=== PATIENT | male | born 1995 | race Caucasian/White ===

== ENCOUNTER 2020-11-14 11:57 | Emergency (ER) | payer BC ==
--- NOTE | 2020-11-14 12:01 | EDM.PDOC ---
ED HPI GENERAL MEDICAL PROBLEM - General Stated Complaint: TROUBLE BREATHING Time Seen by Provider: 11/14/20 11:59 Source of Information: Reports: Patient History Limitations: Reports: No Limitations - History of Present Illness INITIAL COMMENTS - FREE TEXT/NARRATIVE: 25-year-old male presents for multiple complaints. Patient notes that for the last 5 days he has had worsening shortness of breath, nonproductive cough, chest tightness, sore throat, swollen glands in neck, diarrhea, generalized body aches. He denies nausea or vomiting. Denies abdominal pain. Uncertain if he has had fevers. He has not yet contracted COVID-19 but has been tested several times with last test roughly 2 months ago and normal. - Related Data Allergies Allergy/AdvReac Type Severity Reaction Status Date / Time No Known Allergies Allergy Verified 11/14/20 12:09 Home Meds: Home Meds clonazePAM [Klonopin] 0.5 mg PO Q8H PRN #6 tablet 11/14/20 [Rx] ED ROS GENERAL - Review of Systems Review Of Systems: Comprehensive ROS is negative, except as noted in HPI. ED EXAM, GENERAL - Physical Exam Exam: See Below Exam Limited By: No Limitations General Appearance: Alert, WD/WN, No Apparent Distress, Anxious Throat/Mouth: Normal Inspection, Normal Oropharynx, Normal Voice, No Airway Compromise Head: Atraumatic, Normocephalic Neck: Normal Inspection Respiratory/Chest: No Respiratory Distress, Lungs Clear, Normal Breath Sounds, No Accessory Muscle Use Cardiovascular: Normal Peripheral Pulses, Regular Rate, Rhythm Extremities: Normal Inspection Neurological: Alert, Normal Gait Psychiatric: Normal Affect, Normal Mood, Anxious Skin Exam: Warm, Dry, Intact, Normal Color #1 Interpretation EKG Date: 11/14/20 Time: 11:57 Rhythm: NSR Rate (Beats/Min): 81 L[place]ellyn: Normal P-Wave: Present QRS: Normal ST-T: Normal QT: Normal NE/PQ Interval: 160 Comparison: NA - No Prior EKG EKG Interpretation Comments: normal EKG Course - Vital Signs Last Recorded V/S: Last Vital Signs Temp 97.4 F 11/14/20 12:09 Pulse 79 11/14/20 12:09 Resp 16 11/14/20 12:09 BP 130/59 L 11/14/20 12:09 Pulse Ox 98 11/14/20 12:09 - Orders/Labs/Meds Orders: Active Orders 24 hr Category Date Time Status EKG Documentation Completion [RC] STAT Care 11/14/20 12:25 Active Sodium Chloride 0.9% [Saline Flush] Med 11/14/20 12:25 Active 10 ml FLUSH ASDIRECTED PRN Sodium Chloride 0.9% [Saline Flush] Med 11/14/20 12:25 Active 2.5 ml FLUSH ASDIRECTED PRN Saline Lock Insert [OM.PC] Stat Oth 11/14/20 12:25 Ordered Medication Orders Sodium Chloride (Sodium Chloride 0.9% 10 Ml Syringe) 10 ml FLUSH ASDIRECTED PRN PRN Reason: Keep Vein Open Last Admin: 11/14/20 12:32 Dose: 10 ml Documented by: KIKO Sodium Chloride (Sodium Chloride 0.9% 2.5 Ml Syringe) 2.5 ml FLUSH ASDIRECTED PRN PRN Reason: Keep Vein Open Last Admin: 11/14/20 12:32 Dose: 2.5 ml Documented by: KIKO Labs: Laboratory Tests 11/14/20 11/14/20 11/14/20 Range/Units 12:30 12:35 12:35 WBC 6.75 (4.0-11.0) K/uL RBC 4.35 L (4.50-5.90) M/uL Hgb 13.8 (13.0-17.0) g/dL Hct 41.2 (38.0-50.0) % MCV 94.7 (80.0-98.0) fL MCH 31.7 (27.0-32.0) pg MCHC 33.5 (31.0-37.0) g/dL RDW Std Deviation 44.3 (28.0-62.0) fl RDW Coeff of Dorys 13 (11.0-15.0) % Plt Count 223 (150-400) K/uL MPV 12.10 H (7.40-12.00) fL Neut % (Auto) 73.2 (48.0-80.0) % Lymph % (Auto) 17.5 (16.0-40.0) % [place] % (Auto) 8.0 (0.0-15.0) % Eos % (Auto) 1.0 (0.0-7.0) % Baso % (Auto) 0.3 (0.0-1.5) % Neut # (Auto) 4.9 (1.4-5.7) K/uL Lymph # (Auto) 1.2 (0.6-2.4) K/uL [place] # (Auto) 0.5 (0.0-0.8) K/uL Eos # (Auto) 0.1 (0.0-0.7) K/uL Baso # (Auto) 0.0 (0.0-0.1) K/uL Nucleated RBC % 0.0 /100WBC Nucleated RBCs # 0 K/uL Lactate 1.2 (0.20-2.00) mmol/L Sodium (136-148) mmol/L Potassium (3.5-5.1) mmol/L Chloride (98-107) mmol/L Carbon Dioxide (21.0-32.0) mmol/L BUN (7.0-18.0) mg/dL Creatinine (0.8-1.3) mg/dL Est Cr Clr Drug Dosing mL/min Estimated GFR (MDRD) ml/min Glucose (74-106) mg/dL Calcium (8.5-10.1) mg/dL Magnesium (1.8-2.4) mg/dL Total Bilirubin (0.2-1.0) mg/dL AST (15-37) IU/L ALT (14-63) IU/L Alkaline Phosphatase (46-116) U/L Troponin I (0.000-0.056) ng/mL C-Reactive Protein (0.00-0.90) mg/dL Total Protein (6.4-8.2) g/dL Albumin (3.4-5.0) g/dL Globulin (2.6-4.0) g/dL Albumin/Globulin Ratio (0.9-1.6) Lipase (73-393) U/L TSH 3rd Generation (0.36-3.74) uIU/mL Urine Color YELLOW Urine Appearance CLEAR Urine pH 7.0 (5.0-8.0) Ur Specific [place] 1.020 (1.001-1.035) Urine Protein NEGATIVE (NEGATIVE) mg/dL Urine Glucose (UA) NEGATIVE (NEGATIVE) mg/dL Urine Ketones NEGATIVE (NEGATIVE) mg/dL Urine Occult Blood NEGATIVE (NEGATIVE) Urine Nitrite NEGATIVE (NEGATIVE) Urine Bilirubin NEGATIVE (NEGATIVE) Urine Urobilinogen 0.2 (<2.0) EU/dL Ur Leukocyte Esterase NEGATIVE (NEGATIVE) SARS-CoV-2 RNA (GALA) (NEGATIVE) 11/14/20 11/14/20 Range/Units 12:35 12:50 WBC (4.0-11.0) K/uL RBC (4.50-5.90) M/uL Hgb (13.0-17.0) g/dL Hct (38.0-50.0) % MCV (80.0-98.0) fL MCH (27.0-32.0) pg MCHC (31.0-37.0) g/dL RDW Std Deviation (28.0-62.0) fl RDW Coeff of Dorys (11.0-15.0) % Plt Count (150-400) K/uL MPV (7.40-12.00) fL Neut % (Auto) (48.0-80.0) % Lymph % (Auto) (16.0-40.0) % [place] % (Auto) (0.0-15.0) % Eos % (Auto) (0.0-7.0) % Baso % (Auto) (0.0-1.5) % Neut # (Auto) (1.4-5.7) K/uL Lymph # (Auto) (0.6-2.4) K/uL [place] # (Auto) (0.0-0.8) K/uL Eos # (Auto) (0.0-0.7) K/uL Baso # (Auto) (0.0-0.1) K/uL Nucleated RBC % /100WBC Nucleated RBCs # K/uL Lactate (0.20-2.00) mmol/L Sodium 140 (136-148) mmol/L Potassium 4.3 (3.5-5.1) mmol/L Chloride 105 (98-107) mmol/L Carbon Dioxide 26.1 (21.0-32.0) mmol/L BUN 22 H (7.0-18.0) mg/dL Creatinine 1.6 H (0.8-1.3) mg/dL Est Cr Clr Drug Dosing 69.35 mL/min Estimated GFR (MDRD) 52.1 ml/min Glucose 87 (74-106) mg/dL Calcium 9.0 (8.5-10.1) mg/dL Magnesium 2.3 (1.8-2.4) mg/dL Total Bilirubin 0.5 (0.2-1.0) mg/dL AST 21 (15-37) IU/L ALT 27 (14-63) IU/L Alkaline Phosphatase 57 (46-116) U/L Troponin I < 0.050 (0.000-0.056) ng/mL C-Reactive Protein 1.00 H (0.00-0.90) mg/dL Total Protein 7.7 (6.4-8.2) g/dL Albumin 4.3 (3.4-5.0) g/dL Globulin 3.4 (2.6-4.0) g/dL Albumin/Globulin Ratio 1.3 (0.9-1.6) Lipase 174 (73-393) U/L TSH 3rd Generation 0.87 (0.36-3.74) uIU/mL Urine Color Urine Appearance Urine pH (5.0-8.0) Ur Specific [place] (1.001-1.035) Urine Protein (NEGATIVE) mg/dL Urine Glucose (UA) (NEGATIVE) mg/dL Urine Ketones (NEGATIVE) mg/dL Urine Occult Blood (NEGATIVE) Urine Nitrite (NEGATIVE) Urine Bilirubin (NEGATIVE) Urine Urobilinogen (<2.0) EU/dL Ur Leukocyte Esterase (NEGATIVE) SARS-CoV-2 RNA (GALA) NEGATIVE (NEGATIVE) Meds: Medications Generic Name Dose Route Start Last Admin Trade Name Freq PRN Reason Stop Dose Admin Sodium Chloride 10 ml 11/14/20 12:25 11/14/20 12:32 Sodium Chloride 0.9% 10 Ml Syringe FLUSH 10 ml ASDIRECTED PRN Administration Keep Vein Open Sodium Chloride 2.5 ml 11/14/20 12:25 11/14/20 12:32 Sodium Chloride 0.9% 2.5 Ml Syringe FLUSH 2.5 ml ASDIRECTED PRN Administration Keep Vein Open Discontinued Medications Generic Name Dose Route Start Last Admin Trade Name Freq PRN Reason Stop Dose Admin Acetaminophen 1,000 mg 11/14/20 12:25 11/14/20 12:35 Acetaminophen 500 Mg Tab PO 11/14/20 12:26 1,000 mg ONETIME ONE Administration Sodium Chloride 1,000 mls @ 999 mls/hr 11/14/20 12:25 11/14/20 12:31 Normal Saline IV 11/14/20 13:25 999 mls/hr .Bolus ONE Administration Ketorolac Tromethamine 15 mg 11/14/20 12:26 11/14/20 12:36 Ketorolac 15 Mg/Ml Sdv IVPUSH 11/14/20 12:27 15 mg ONETIME ONE Administration - Re-Assessments/Exams Free Text/Narrative Re-Assessment/Exam: 11/14/20 12:28 We will get basic labs, IV fluid bolus, Toradol, Tylenol. Will COVID swab. EKG normal. Will get CXR. 11/14/20 13:52 Patient's labs are grossly unremarkable. Chest x-ray is normal. Covid swab is negative. He is feeling a little better after IV fluid bolus, Toradol, Tylenol. Patient likely with viral illness given the consolation of symptoms. He has noting that his anxiety is pretty bad and he is requesting something for anxiety. I will give him a short prescription for anxiolytics. I discussed that he needs to follow-up with a primary care physician as there is some diagnostic uncertainty with today's work-up. I discussed return precautions. Departure - Departure Time of Disposition: 13:52 Disposition: Home, Self-Care 01 Condition: Good Clinical Impression: Viral syndrome - Discharge Information Prescriptions: clonazePAM [Klonopin] 0.5 mg PO Q8H PRN #6 tablet PRN Reason: Anxiety Instructions: Viral Illness, Adult Additional Instructions: Your labs were unremarkable aside from mild dehydration. There is some diagnostic uncertainty as we could not find a specific source of infection or a specific reason for your symptoms. If you are having continued symptoms then I would recommend following up with a primary care physician, information is provided below if you do not have one. If your condition acutely worsens then you are always welcome to come back and encouraged to come back to the emergency department for reassessment. I have also sent a short course of anxiety medication to your pharmacy. This is a short-term solution and should not be relied upon as a definitive fix for anxiety. If you are struggling with anxiety this is also something that you should talk to your primary care physician about. The following information is given to patients seen in the emergency department who are being discharged to home. This information is to outline your options for follow-up care. We provide all patients seen in our emergency department with a follow-up referral. The need for follow-up, as well as the timing and circumstances, are variable depending upon the specifics of your emergency department visit. If you don't have a primary care physician on staff, we will provide you with a referral. We always advise you to contact your personal physician following an emergency department visit to inform them of the circumstance of the visit and for follow-up with them and/or the need for any referrals to a consulting specialist. The emergency department will also refer you to a specialist when appropriate. This referral assures that you have the opportunity for follow-up care with a specialist. All of these measure are taken in an effort to provide you with optimal care, which includes your follow-up. Under all circumstances we always encourage you to contact your private physician who remains a resource for coordinating your care. When calling for follow-up care, please make the office aware that this follow-up is from your recent emergency room visit. If for any reason you are refused follow-up, please contact the [facility] Emergency Department at and asked to speak to the emergency department charge nurse. Please follow up with your primary care physician. If you do not have a primary care physician, see below: [facility] [address] [place] [id number] [facility] [address] [place] [address] [facility] [address] [place] [id number] Sepsis Event Note (ED) - Focused Exam Vital Signs: Vital Signs Temp Pulse Resp BP Pulse Ox 11/14/20 12:09 97.4 F 79 16 130/59 L 98 - My Orders Last 24 Hours: My Active Orders 11/14/20 12:25 EKG Documentation Completion [RC] STAT Sodium Chloride 0.9% [Saline Flush] 10 ml FLUSH ASDIRECTED PRN Sodium Chloride 0.9% [Saline Flush] 2.5 ml FLUSH ASDIRECTED PRN Saline Lock Insert [OM.PC] Stat - Assessment/Plan Last 24 Hours: My Active Orders 11/14/20 12:25 EKG Documentation Completion [RC] STAT Sodium Chloride 0.9% [Saline Flush] 10 ml FLUSH ASDIRECTED PRN Sodium Chloride 0.9% [Saline Flush] 2.5 ml FLUSH ASDIRECTED PRN Saline Lock Insert [OM.PC] Stat
[2020-11-14] MEDS ORDERED: Sodium Chloride 0.9% 10 ML Syringe FLUSH PRN (12:25)
[2020-11-14] MEDS ORDERED: Sodium Chloride 0.9% 1,000 ML IV ONE (12:25)
[2020-11-14] MEDS ORDERED: Acetaminophen 500 MG Tab PO ONE (12:25)
[2020-11-14] MEDS ORDERED: Sodium Chloride 0.9% 2.5 ML Syringe FLUSH PRN (12:25)
[2020-11-14] MEDS ORDERED: Ketorolac 15 MG/ML SDV IVPUSH ONE (12:26)
--- NOTE | 2020-11-14 13:10 | CR ---
INDICATION: CP; SOB TECHNIQUE: Chest 1 view. COMPARISON: None. FINDINGS: Cardiovascular and mediastinum: Heart size and vasculature are normal in caliber and appearance. Mediastinum is within normal limits. Lungs and pleural space: Lungs are clear. No sign of infiltrate or mass. No sign of pleural effusion. No pneumothorax. Bones and soft tissues: No significant findings. IMPRESSION: Unremarkable chest. Dictated by: Jorje Wynn MD @ 11/14/2020 13:09:15 (Electronically Signed)
[2020-11-14 13:28] LABS: BLOOD UREA NITROGEN,BUN 22 mg/dL (7.0-18.0); CARBON DIOXIDE,CO2 26.1 mmol/L (21.0-32.0); CHLORIDE,CL 105 mmol/L (98-107); GLUCOSE RANDOM 87 mg/dL (74-106); LIPASE 174 U/L (73-393); POTASSIUM,K 4.3 mmol/L (3.5-5.1); SODIUM,NA 140 mmol/L (136-148)
== END 2020-11-14 14:10 | disposition home or self-care (01) ==
LOC: MW.ED 11:57
DX: B34.9 Viral infection, unspecified (principal); Z20.822 Contact with and (suspected) exposure to COVID-19
CPT/HCPCS: 36415; 71045; 80053; 81003; 83605; 83690; 83735; 84443; 84484; 85025; 86140; 87635; 93005; 96374; 99285; A9270; J1885; J7030; 93010; 99283; U0002

== ENCOUNTER 2022-01-08 13:35 | Emergency (ER) | payer BC, MEDICAID ==
[2022-01-08 14:24] LABS: BLOOD UREA NITROGEN,BUN 24 mg/dL (7.0-18.0); CARBON DIOXIDE,CO2 26.5 mmol/L (21.0-32.0); CHLORIDE,CL 100 mmol/L (98-107); GLUCOSE RANDOM 99 mg/dL (74-106); SODIUM,NA 138 mmol/L (136-148)
[2022-01-08 14:29] LABS: CORONAVIRUS COVID-19 NAA NEGATIVE (NEGATIVE); INFLUENZA A NAA NEGATIVE (NEGATIVE); INFLUENZA B NAA NEGATIVE (NEGATIVE)
== END 2022-01-08 14:52 | disposition home or self-care (01) ==
LOC: MW.ED 13:35
DX: R07.89 Other chest pain (principal); Z20.822 Contact with and (suspected) exposure to COVID-19
CPT/HCPCS: 0240U; 36415; 71045; 80053; 84484; 85025; 85379; 93005; 99285; 99283

== ENCOUNTER 2022-03-07 01:37 | Emergency (ER) | payer SELFPAY ==
[2022-03-07] MEDS ORDERED: Dexamethasone 10 MG/ML SDV IM ONE (02:09)
[2022-03-07] MEDS ORDERED: Acetaminophen/oxyCODONE 325-10 MG Tab PO ONE (03:30)
== END 2022-03-07 03:40 | disposition home or self-care (01) ==
LOC: MW.ED 01:37
DX: S46.212A Strain of muscle, fascia and tendon of other parts of biceps, left arm, initial encounter (principal); W20.8XXA Other cause of strike by thrown, projected or falling object, initial encounter
CPT/HCPCS: 73080-26-LT; 73080-LT; 96372; 99283; A9270-GY; J1100

== ENCOUNTER 2022-06-26 21:46 | Emergency (ER) | payer MEDICAID ==
[2022-06-26] MEDS ORDERED: Ondansetron 4 MG/2 ML SDV IVPUSH ONE (22:19)
[2022-06-26] MEDS ORDERED: Dextrose 5%-Lactated Ringers 1,000 ML IV STA (22:19)
[2022-06-26] MEDS ORDERED: Ketorolac 30 MG/ML SDV IVPUSH ONE (22:29)
[2022-06-26 22:58] LABS: POTASSIUM,K 3.7 mmol/L (3.5-5.1)
[2022-06-26 23:15] LABS: CORONAVIRUS COVID-19 NAA POSITIVE (NEGATIVE); INFLUENZA A NAA NEGATIVE (NEGATIVE); INFLUENZA B NAA NEGATIVE (NEGATIVE)
== END 2022-06-27 00:01 | disposition home or self-care (01) ==
LOC: MW.ED 21:46
DX: U07.1 COVID-19 (principal); B34.9 Viral infection, unspecified; Z79.899 Other long term (current) drug therapy
CPT/HCPCS: 0240U; 36415; 80053; 83690; 85025; 96361; 96374; 96375; 99283; J1885; J2405; J7121

== ENCOUNTER 2022-06-28 09:27 | Emergency (ER) | payer MEDICAID ==
[2022-06-28] MEDS ORDERED: Aspirin 81 MG Tab.Chew PO ONE (09:58)
[2022-06-28] MEDS ORDERED: Oxymetazoline 0.05% Nasal Spray 30 ML Bottle NAS ONE (09:59)
[2022-06-28 11:21] LABS: CARBON DIOXIDE,CO2 28.4 mmol/L (21.0-32.0); POTASSIUM,K 4.2 mmol/L (3.5-5.1)
== END 2022-06-28 13:00 | disposition home or self-care (01) ==
LOC: MW.ED 09:27
DX: R07.89 Other chest pain (principal)
CPT/HCPCS: 36415; 80053; 84484; 85025; 93005; 99285; A9270

== ENCOUNTER 2022-11-30 09:38 | Emergency (ER) | payer MEDICAID ==
[2022-11-30] MEDS ORDERED: Ondansetron 4 MG/2 ML SDV IVPUSH ONE (10:07)
[2022-11-30] MEDS ORDERED: Sodium Chloride 0.9% 1,000 ML IV ONE (10:07)
[2022-11-30] MEDS ORDERED: Ketorolac 30 MG/ML SDV IVPUSH ONE (10:07)
[2022-11-30] MEDS ORDERED: Morphine 4 MG/ML Syringe IVPUSH ONE (10:07)
[2022-11-30 10:32] LABS: CARBON DIOXIDE,CO2 27.8 mmol/L (21.0-32.0); POTASSIUM,K 4.7 mmol/L (3.5-5.1)
== END 2022-11-30 12:02 | disposition home or self-care (01) ==
LOC: MW.ED 09:38
DX: N20.0 Calculus of kidney (principal); Z79.899 Other long term (current) drug therapy
CPT/HCPCS: 36415; 74176; 80053; 81001; 82550; 83690; 85025; 99284; J1885; J2270; J2405; J7030; 99283

== ENCOUNTER 2023-02-23 17:54 | Emergency (ER) | payer MEDICAID ==
[2023-02-23 18:54] LABS: APPEARANCE,URINE CLEAR; BILIRUBIN,URINE NEGATIVE (NEGATIVE); COLOR,URINE YELLOW; GLUCOSE,URINE NEGATIVE (NEGATIVE); KETONES,URINE 40 mg/dL (NEGATIVE); LEUKOCYTE ESTERASE,URINE NEGATIVE (NEGATIVE); NITRITE,URINE NEGATIVE (NEGATIVE); OCCULT BLOOD,URINE NEGATIVE (NEGATIVE); PH,URINE 5.5 (5.0-8.0); PROTEIN,URINE NEGATIVE (NEGATIVE); UROBILINOGEN,URINE 0.2 EU/dL (<2.0)
[2023-02-23] MEDS ORDERED: Acetaminophen 325 MG Tab PO ONE (19:17)
[2023-02-23] MEDS ORDERED: Ibuprofen 400 MG Tab PO ONE (19:17)
[2023-02-23] MEDS ORDERED: Ibuprofen 600 MG Tab ONE (20:07)
[2023-02-23] MEDS ORDERED: Ibuprofen 600 MG Tab PO ONE (20:08)
[2023-02-23 20:23] LABS: C. TRACHOMATIS BY PCR NOT DETECTED; N. GONORRHOEAE BY PCR NOT DETECTED
[2023-02-23] MEDS ORDERED: cefTRIAXone 500 MG in Lidocaine 1% 1 ML IM ONE (20:24)
[2023-02-23] MEDS ORDERED: Doxycycline 100 MG Cap PO ONE (20:24)
== END 2023-02-23 21:21 | disposition home or self-care (01) ==
LOC: MW.ED 17:54
DX: N45.1 Epididymitis (principal); F17.210 Nicotine dependence, cigarettes, uncomplicated
CPT/HCPCS: 76870; 81003; 87491; 87591; 93976; 96372; 99284; A9270; J0696; 99283; J3490

== ENCOUNTER 2023-04-24 08:55 | Emergency (ER) | payer BC ==
[2023-04-24] MEDS ORDERED: Cyclobenzaprine 10 MG Tab PO ONE (09:15)
[2023-04-24] MEDS ORDERED: Sodium Chloride 0.9% 10 ML Syringe FLUSH PRN (09:15)
[2023-04-24] MEDS ORDERED: Sodium Chloride 0.9% 2.5 ML Syringe FLUSH PRN (09:15)
[2023-04-24] MEDS ORDERED: Lidocaine 4% 1 each Patch TOP ONE (09:15)
== END 2023-04-24 10:14 | disposition home or self-care (01) ==
LOC: MW.ED 08:55
DX: M54.6 Pain in thoracic spine (principal); R04.0 Epistaxis; R07.9 Chest pain, unspecified; M54.2 Cervicalgia; Z72.0 Tobacco use
CPT/HCPCS: 93005; 99285; A9270; 93010; 99283